=== PATIENT | male | born 1950 | race Caucasian/White ===

== ENCOUNTER → 2022-12-11 | Outpatient (CLI) | payer MEDICARE, OTHER ==
[2022-12-11 13:18] LABS: CREATININE 1.2 mg/dL (0.5-1.5); MAGNESIUM 1.8 mg/dL (1.80-2.40); POTASSIUM 4.1 mmol/L (3.5-5.1)
== END | disposition home or self-care (01) ==
LOC: LAB 11:05
PROVIDERS: ATTEND Physician Assistant
DX: R06.09 Other forms of dyspnea (principal)
CPT/HCPCS: 36415; 80048; 83735

== ENCOUNTER → 2023-01-09 | Outpatient (CLI) | payer MEDICARE, OTHER | END | disposition home or self-care (01) | LOC: SHCH 10:06 → EDUNIT# 10:30 | PROVIDERS: ATTEND Internal Medicine Cardiovascular Disease | DX: I11.9 Hypertensive heart disease without heart failure (principal); I08.0 Rheumatic disorders of both mitral and aortic valves; E78.5 Hyperlipidemia, unspecified | CPT/HCPCS: 93306 ==

== ENCOUNTER → 2025-08-15 | Outpatient (CLI) | payer MEDICARE, OTHER ==
[~2025-08-15] MED LIST: IOHEXOL-350 75 ML VIAL IV ONE
--- NOTE | 2025-08-15 22:31 | HMCIMG ---
STUDY CT chest with and without intravenous contrast. HISTORY Shortness of breath and nonspecific abnormal lung findings. TECHNIQUE Axial CT images of the chest obtained with and without intravenous contrast. COMPARISON None provided. FINDINGS Lungs Biapical pleural thickening is present with associated subpleural scarring, more pronounced on the right. Paraseptal emphysema is noted in the bilateral upper lobes. Bandlike atelectasis is present in the right lower lobe with mild bronchial wall thickening and peribronchial haziness. No pulmonary mass, focal consolidation, or suspicious nodule is identified. Pleural spaces No pleural effusion or pneumothorax is demonstrated. Heart Cardiac size is within normal limits. No significant pericardial effusion is seen. Lymph nodes No mediastinal, hilar, or axillary lymphadenopathy is identified. Bones No focal osseous abnormality or acute fracture is demonstrated. Upper abdomen Visualized upper abdominal solid organs are unremarkable. IMPRESSION * Biapical pleural thickening with subpleural scarring, right greater than left, and paraseptal emphysema in the bilateral upper lobes, compatible with chronic smoking-related or prior inflammatory change in the appropriate clinical context. * Right lower lobe atelectatic bands with mild bronchial wall thickening and peribronchial haziness, without focal consolidation or mass. /[place]
== END | disposition home or self-care (01) ==
LOC: RAH 09:54
PROVIDERS: ATTEND Internal Medicine Cardiovascular Disease
DX: J43.8 Other emphysema (principal); J98.4 Other disorders of lung; J98.11 Atelectasis; R91.8 Other nonspecific abnormal finding of lung field; R06.02 Shortness of breath
CPT/HCPCS: 71270; Q9967